=== PATIENT | male | born 1950 ===

== ENCOUNTER 2018-03-12 18:21 | Emergency (ER) | payer BC ==
[2018-03-12 18:44] VITALS: BP 172/115
--- NOTE | 2018-03-12 19:33 | UC ---
Complaint Male HPI - HPI Summary HPI Summary: ONSET OF SHARP RIGHT GROIN PAIN YESTERDAY MORNING AFTER BREAKFAST. PAIN RADIATES DOWN INTO RIGHT GROIN. PATIENT ALSO COMPLAINS OF LOW BACK PAIN AND NAUSEA. THREW UP ONE TIME THIS AFTERNOON. FEELS CONSTIPATED. NO BM IN SEVERAL DAYS BUT IS PASSING GAS. HAD SUBJECTIVE FEVER TODAY. - History of Current Complaint Chief Complaint: UCAbdominalPain Stated Complaint: LEG,GROIN PAIN,CONSTIPATION Time Seen by Provider: 03/12/18 19:01 Hx Obtained From: Patient Onset/Duration: Sudden Onset, Lasting Days, Still Present Timing: Constant Severity Initially: Moderate Severity Currently: Moderate Pain Intensity: 5 Pain Scale Used: 0-10 Numeric Location: Groin - RIGHT Character: Sharp Aggravating Factor(s): Other - MOVEMENT Alleviating Factor(s): Nothing Associated Signs And Symptoms: Positive: Back Pain, Fever, Constipation, Nausea , Vomiting(# Of Episodes =). Negative: Dysuria, Blood in Stool, Rectal Pain - Allergies/Home Medications Allergies/Adverse Reactions: Allergies Allergy/AdvReac Type Severity Reaction Status Date / Time COOLANT Allergy Rash Uncoded 03/12/18 18:44 Home Medications: Home Medications Vitamin B Complex CAP* [B Complex CAP*] 1 cap PO DAILY 03/12/18 [History Confirmed 03/12/18] PMH/Surg Hx/FS Hx/Imm Hx - Additional Past Medical History Additional PMH: RHEUMATOID ARTHRITIS - Surgical History Surgical History: Yes Surgery Procedure, Year, and Place: t&a - Family History Known Family History: Positive: Hypertension - Social History Alcohol Use: Weekly Alcohol Amount: 4-5 CANS/WEEK Substance Use Type: None Smoking Status (MU): Former Smoker Amount Used/How Often: 2 1/2 PPD X 20 YEARS Have You Smoked in the Last Year: No When Did the Patient Quit Smoking/Using Tobacco: 1982 Review of Systems Constitutional: Fever, Chills Respiratory: Negative Cardiovascular: Negative Gastrointestinal: Abdominal Pain, Vomiting, Nausea Genitourinary: Other - RIGHT GROIN PAIN Musculoskeletal: Other: - LOW BACK PAIN All Other Systems Reviewed And Are Negative: Yes Physical Exam Triage Information Reviewed: Yes Appearance: Well-Nourished, Pain Distress - MODERATE PAIN WITH MOVEMENT Vital Signs: Initial Vital Signs Temp 97.4 F 03/12/18 18:40 Pulse 55 03/12/18 18:40 Resp 16 03/12/18 18:40 BP 172/115 03/12/18 18:40 Pulse Ox 100 03/12/18 18:40 Laboratory Tests 03/12/18 19:39 POC Urine Color Yellow POC Urine Clarity Clear POC Urine pH 6.0 POC Ur Specif [place] >= 1.030 POC Urine Protein Negative POC Ur Glucose (UA) Negative POC Urine Ketones Negative POC Urine Blood Negative POC Urine Nitrite Negative POC Urine Bilirubin Negative POC Urine Urobilinogen 0.2 POC U Leukocyte Esteras Negative Vital Signs Reviewed: Yes Eyes: Positive: Conjunctiva Clear ENT: Positive: Hearing grossly normal Neck: Positive: Supple Respiratory Exam: Normal Cardiovascular Exam: Normal Abdomen Description: Positive: Soft, CVA Tenderness (R), Other: - TTP RLQ. NO REBOUND OR RIGIDITY. PAIN WITH PERCUSSION. NEG OBTURATOR. EQUIVOCAL PSOAS SIGN.. Negative: CVA Tenderness (L), Distended, Guarding Bowel Sounds: Positive: Present Male Genital Exam: Positive: Normal Genitalia - NO TESTICULAR TENDERNESS. NO MASS. Musculoskeletal: Positive: No Edema Neurological: Positive: Alert Psychological: Positive: Normal Response To Family, Age Appropriate Behavior Skin: Negative: rashes Complaint Male Course/Dx - Course Course Of Treatment: [place] [facility] [place] [facility] [place]. NEED TO CONSIDER APPY, PARTIAL SBO, STONE, HERNIA. PT OFFERED TRANSPORT TO THE ED BY AMBULANCE BUT DECLINES. ADVISED THAT BY NOT TRAVELING IN A MONITORED SETTING HE COULD BE RISKING WORSENING OF HIS CONDITION THAT COULD POSE A THREAT TO HIS LIFE, HEALTH AND MEDICAL SAFETY. HE VERBALIZES UNDERSTANDING AND CONTINUES TO DECLINE AMBULANCE TRANSFER. - Differential Dx/Diagnosis Provider Diagnoses: RLQ PAIN/PELVIC PAIN Discharge - Sign-Out/Discharge Documenting (check all that apply): Patient Departure All imaging exams completed and their final reports reviewed: No Studies - Discharge Plan Condition: Stable Disposition: [facility]ANS [facility] Patient Education Materials: Abdominal Pain (ED), Pelvic Pain (ED) Additional Instructions: URINE TEST UNREMARKABLE. GIVEN YOUR LEVEL OF DISCOMFORT EVALUATION IN THE ED IS WARRANTED. GO DIRECTLY [place] [facility] [place] FOR FURTHER EVALUATION. YOU HAVE DECLINED TRANSFER TO THE ED BY AMBULANCE. BE ADVISED THAT BY NOT TRAVELING IN A MONITORED SETTING YOU COULD BE RISKING WORSENING OF YOUR CONDITION THAT COULD POSE A THREAT TO YOUR LIFE, HEALTH AND MEDICAL SAFETY. - Billing Disposition and Condition Condition: STABLE Disposition: Trans Higher l of Care Fac
== END 2018-03-12 20:00 | disposition short-term general hospital (02) ==
LOC: UCEAST 18:21
DX: R10.31 Right lower quadrant pain (principal); R10.2 Pelvic and perineal pain; M54.5 Low back pain; Z87.891 Personal history of nicotine dependence
CPT/HCPCS: 81003; 99212; G0463

== ENCOUNTER 2018-03-12 20:20 | Emergency (ER) | payer BC, OTHER ==
[2018-03-12] MEDS ORDERED: NS 0.9% 1000 ML* 1,000 ML IV ONE (22:42)
[2018-03-12] MEDS ORDERED: Morphine VIAL* 10 MG/ML 1 ML VIAL IV ONE (22:46)
[2018-03-12] MEDS ORDERED: Ondansetron INJ* 2 MG/ML VIAL IV ONE (22:46)
[2018-03-12 23:00] LABS: ABS Basophils 0 10^3/ul (0-0.2); ABS Eosinophils 0 10^3/ul (0-0.6); ABS Lymphocytes 1.3 10^3/ul (1.0-4.8); ABS Monocytes 0.3 10^3/ul (0-0.8); ABS Neutrophils 7.9 10^3/ul (1.5-7.7); ABS Nucleated RBC 0 10^3/ul; Eosinophil % 0.2 % (0-6); Hematocrit 43 % (42-52); Hemoglobin 14.6 g/dl (14.0-18.0); Lymphocyte % 13.1 % (25-47); Mean Corpuscular HGB Conc 34 g/dl (31-36); Mean Corpuscular Hemoglobin 30 pg (27-31); Mean Corpuscular Volume 87 fL (80-94); Mean Platelet Volume 7.2 um3 (7.4-10.4); Nucleated Red Blood Cells % 0.2; Platelet Count 223 10^3/ul (150-450); Red Cell Distribution Width 14 % (10.5-15); White Blood Count 9.6 10^3/ul (3.5-10.8)
[2018-03-12] MEDS ORDERED: Morphine INJ* 4 MG/ML 1 ML SYRINGE (NEW SYRINGE VERSION) IV ONE (23:00)
[2018-03-12] MEDS ORDERED: Morphine INJ* 4 MG/ML 1 ML SYRINGE (NEW SYRINGE VERSION) ONE (23:10)
[2018-03-12 23:16] LABS: EGFR Non-African American 77.7 (>60)
--- NOTE | 2018-03-12 23:41 | RAD ---
EXAM: CT Abdomen and Pelvis Without Intravenous Contrast CLINICAL HISTORY: 67 years old, male; Pain; Abdominal pain; Generalized; Additional info: Flank pain TECHNIQUE: Axial computed tomography images of the abdomen and pelvis without intravenous contrast. All CT scans at this facility use at least one of these dose optimization techniques: automated exposure control; mA and/or kV adjustment per patient size (includes targeted exams where dose is matched to clinical indication); or iterative reconstruction. Coronal and sagittal reformatted images were created and reviewed. COMPARISON: No relevant prior studies available. FINDINGS: Lung bases: Unremarkable. No mass. No consolidation. ABDOMEN: Liver: Diffuse fatty infiltration of the liver. The size of the liver is normal. No focal hepatic lesion is seen on this unenhanced study. Gallbladder and bile ducts: No calcified gallstones. No gallbladder wall thickening. No distention of the common bile duct. Pancreas: No focal pancreatic lesion. No distention of the pancreatic duct. Spleen: The spleen is of normal size and appearance. Adrenals: The adrenal glands are normal. Kidneys and ureters: The kidneys are of normal size and appearance. No hydronephrosis or nephrolithiasis. In following the course of the ureters, no intraluminal calcification. Stomach and bowel: No bowel obstruction. No abnormal bowel wall thickening. PELVIS: Appendix: No findings to suggest acute appendicitis. Bladder: The bladder is distended with urine. No calcified stone within the bladder lumen. Reproductive: Unremarkable as visualized. ABDOMEN and PELVIS: Intraperitoneal space: No free abdominal fluid or air. Bones/joints: Spondylotic changes lumbar spine. No evidence of a fracture or pathologic subluxation. Soft tissues: Unremarkable. Vasculature: Calcification of the wall of the abdominal aorta. Ectasia of the descending abdominal aorta with a diameter of approximately 26 mm. Aneurysmal dilatation of the right common iliac artery. This has a diameter of 2.5 cm. Lymph nodes: Unremarkable. No enlarged lymph nodes. Other findings: No mesenteric inflammation. IMPRESSION: 1. No acute findings. 2. 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 Recommend yearly followup.
[2018-03-13 00:37] LABS: Urine Appearance Cloudy; Urine Blood Negative (Negative); Urine Color Yellow; Urine Ketones 1+ (Negative); Urine Protein Negative (Negative); Urine Specific Gravity 1.019 (1.010-1.030); Urine Urobilinogen Negative (Negative)
--- NOTE | 2018-03-13 00:49 | ED ---
Back Pain - HPI Summary HPI Summary: Patient sent from [facility] to the ED for evaluation of right flank pain, right groin pain, N/V, radiation down right leg. Pain started yesterday morning has been progressive and constant. Patient denies trauma, fever, cough , sore throat, CP, SOB, diarrhea, change in urine, change in BM. Patient no history of kidney stones, denies blood in urine. No anti-coag. Pain rated 10 out of 10. Medical history is RA. - History of Current Complaint Chief Complaint: EDFlankPain Stated Complaint: GROIN/BACK PAIN Time Seen by Provider: 03/12/18 22:37 Hx Obtained From: Patient Onset/Duration: Sudden Onset Onset/Duration: Started Hours Ago Timing: Constant Back Pain Location: Radiates To Severity Initially: Severe Severity Currently: Severe Pain Intensity: 9 Pain Scale Used: 0-10 Numeric Character: Sharp Aggravating Symptom(s): Nothing Alleviating Symptom(s): Nothing Associated Signs And Symptoms: Positive: Abdominal Pain, Flank Pain - Allergies/Home Medications Allergies/Adverse Reactions: Allergies Allergy/AdvReac Type Severity Reaction Status Date / Time COOLANT Allergy Rash Uncoded 03/12/18 20:31 PMH/Surg Hx/FS Hx/Imm Hx Endocrine/Hematology History: Denies: Hx Anticoagulant Therapy, Hx Diabetes, Hx Thyroid Disease Cardiovascular History: Reports: Other Cardiovascular Problems/Disorders - ABNORMAL EKG-PER PT.-STATES WORKUP NEGATIVE-STATES WAS BORN WITH Denies: Hx Hypertension Respiratory History: Denies: Hx Asthma, Hx Chronic Obstructive Pulmonary Disease (COPD) GI History: Reports: Hx Gastroesophageal Reflux Disease - HX OF IN THE PAST Denies: Hx Ulcer Musculoskeletal History: Reports: Hx Arthritis - HANDS, KNEES, ANKLES, Hx Bursitis - KNEES Sensory History: Reports: Hx Cataracts - BILATERAL, Hx Contacts or Glasses - GLASSES Denies: Hx Hearing Aid Opthamlomology History: Reports: Hx Cataracts - BILATERAL, Hx Contacts or Glasses - GLASSES - Surgical History Surgery Procedure, Year, and Place: t&a Hx Anesthesia Reactions: No Infectious Disease History: No Infectious Disease History: Denies: Hx Hepatitis, Hx Human Immunodeficiency Virus (HIV), Traveled Outside the [place] in Last 30 Days - Family History Known Family History: Positive: Hypertension - Social History Alcohol Use: Weekly Alcohol Amount: 4-5 CANS/WEEK Substance Use Type: Reports: None Smoking Status (MU): Former Smoker Amount Used/How Often: 2 1/2 PPD X 20 YEARS Have You Smoked in the Last Year: No Review of Systems Constitutional: Negative Eyes: Negative ENT: Negative Cardiovascular: Negative Respiratory: Negative Positive: Abdominal Pain, Vomiting, Nausea Positive: flank pain Musculoskeletal: Negative Skin: Negative Neurological: Negative Psychological: Normal All Other Systems Reviewed And Are Negative: Yes Physical Exam Triage Information Reviewed: Yes Vital Signs On Initial Exam: Initial Vitals Temp Pulse Resp BP Pulse Ox 97.4 F 60 16 178/92 98 03/12/18 20:20 03/12/18 20:20 03/12/18 20:20 03/12/18 20:20 03/12/18 20:20 Vital Signs Reviewed: Yes Appearance: Positive: Well-Appearing Skin: Positive: Warm Head/Face: Positive: Normal Head/Face Inspection Eyes: Positive: Normal Neck: Positive: Supple Respiratory/Lung Sounds: Positive: Clear to Auscultation Cardiovascular: Positive: Normal Abdomen Description: Negative: CVA Tenderness (R), CVA Tenderness (L), [place] Tenderness Musculoskeletal: Positive: Normal Neurological: Positive: Normal Psychiatric: Positive: Normal AVPU Assessment: Alert - [place] Coma Scale Best Eye Response: 4 - Spontaneous Best Motor Response: 6 - Obeys Commands Best Verbal Response: 5 - Oriented Coma Scale Total: 15 Diagnostics - Vital Signs Vital Signs Temp Pulse Resp BP Pulse Ox 03/13/18 00:01 64 97 03/12/18 23:59 67 177/91 97 03/12/18 23:57 181/93 03/12/18 23:37 20 03/12/18 22:20 97.7 F 65 16 182/98 98 03/12/18 20:20 97.4 F 60 16 178/92 98 - Laboratory Lab Results: Lab Results 03/12/18 03/12/18 03/12/18 Range/Units 22:53 22:53 22:53 WBC 9.6 (3.5-10.8) 10^3/ul RBC 4.90 (4.00-5.40) 10^6/ul Hgb 14.6 (14.0-18.0) g/dl Hct 43 (42-52) % MCV 87 (80-94) fL MCH 30 (27-31) pg MCHC 34 (31-36) g/dl RDW 14 (10.5-15) % Plt Count 223 (150-450) 10^3/ul MPV 7.2 L (7.4-10.4) um3 Neut % (Auto) 82.7 (38-83) % Lymph % (Auto) 13.1 L (25-47) % [place] % (Auto) 3.6 (0-7) % Eos % (Auto) 0.2 (0-6) % Baso % (Auto) 0.4 (0-2) % Absolute Neuts (auto) 7.9 H (1.5-7.7) 10^3/ul Absolute Lymphs (auto) 1.3 (1.0-4.8) 10^3/ul Absolute Monos (auto) 0.3 (0-0.8) 10^3/ul Absolute Eos (auto) 0 (0-0.6) 10^3/ul Absolute Basos (auto) 0 (0-0.2) 10^3/ul Absolute Nucleated RBC 0 10^3/ul Nucleated RBC % 0.2 Sodium 138 (135-145) mmol/L Potassium 3.9 (3.5-5.0) mmol/L Chloride 107 (101-111) mmol/L Carbon Dioxide 23 (22-32) mmol/L Anion Gap 8 (2-11) mmol/L BUN 19 (6-24) mg/dL Creatinine 0.96 (0.67-1.17) mg/dL Est GFR ( Amer) 94.0 (>60) Est GFR (Non-Af Amer) 77.7 (>60) BUN/Creatinine Ratio 19.8 (8-20) Glucose 126 H (70-100) mg/dL Lactic Acid 1.0 (0.5-2.0) mmol/L Calcium 8.9 (8.6-10.3) mg/dL Total Bilirubin 0.50 (0.2-1.0) mg/dL AST 18 (13-39) U/L ALT 22 (7-52) U/L Alkaline Phosphatase 48 (34-104) U/L C-Reactive Protein 1.57 (<8.01) mg/L Total Protein 7.0 (6.4-8.9) g/dL Albumin 4.3 (3.2-5.2) g/dL Globulin 2.7 (2-4) g/dL Albumin/Globulin Ratio 1.6 (1-3) Lipase 20 (11.0-82.0) U/L Urine Color Urine Appearance Urine pH (5-9) Ur Specific [place] (1.010-1.030) Urine Protein (Negative) Urine Ketones (Negative) Urine Blood (Negative) Urine Nitrate (Negative) Urine Bilirubin (Negative) Urine Urobilinogen (Negative) Ur Leukocyte Esterase (Negative) Urine Glucose (Negative) Urine Ascorbic Acid (Negative) 03/13/18 Range/Units 00:21 WBC (3.5-10.8) 10^3/ul RBC (4.00-5.40) 10^6/ul Hgb (14.0-18.0) g/dl Hct (42-52) % MCV (80-94) fL MCH (27-31) pg MCHC (31-36) g/dl RDW (10.5-15) % Plt Count (150-450) 10^3/ul MPV (7.4-10.4) um3 Neut % (Auto) (38-83) % Lymph % (Auto) (25-47) % [place] % (Auto) (0-7) % Eos % (Auto) (0-6) % Baso % (Auto) (0-2) % Absolute Neuts (auto) (1.5-7.7) 10^3/ul Absolute Lymphs (auto) (1.0-4.8) 10^3/ul Absolute Monos (auto) (0-0.8) 10^3/ul Absolute Eos (auto) (0-0.6) 10^3/ul Absolute Basos (auto) (0-0.2) 10^3/ul Absolute Nucleated RBC 10^3/ul Nucleated RBC % Sodium (135-145) mmol/L Potassium (3.5-5.0) mmol/L Chloride (101-111) mmol/L Carbon Dioxide (22-32) mmol/L Anion Gap (2-11) mmol/L BUN (6-24) mg/dL Creatinine (0.67-1.17) mg/dL Est GFR ( Amer) (>60) Est GFR (Non-Af Amer) (>60) BUN/Creatinine Ratio (8-20) Glucose (70-100) mg/dL Lactic Acid (0.5-2.0) mmol/L Calcium (8.6-10.3) mg/dL Total Bilirubin (0.2-1.0) mg/dL AST (13-39) U/L ALT (7-52) U/L Alkaline Phosphatase (34-104) U/L C-Reactive Protein (<8.01) mg/L Total Protein (6.4-8.9) g/dL Albumin (3.2-5.2) g/dL Globulin (2-4) g/dL Albumin/Globulin Ratio (1-3) Lipase (11.0-82.0) U/L Urine Color Yellow Urine Appearance Cloudy Urine pH 5.0 (5-9) Ur Specific [place] 1.019 (1.010-1.030) Urine Protein Negative (Negative) Urine Ketones 1+ A (Negative) Urine Blood Negative (Negative) Urine Nitrate Negative (Negative) Urine Bilirubin Negative (Negative) Urine Urobilinogen Negative (Negative) Ur Leukocyte Esterase Negative (Negative) Urine Glucose Negative (Negative) Urine Ascorbic Acid * A (Negative) Result Diagrams: 03/12/18 22:53 03/12/18 22:53 Lab Statement: Any lab studies that have been ordered have been reviewed, and results considered in the medical decision making process. - CT abdomen pelvis without CT Interpretation: No Acute Changes CT Interpretation Completed By: Radiologist Back Pain Course/Dx - Course Course Of Treatment: Patient sent from [facility] to the ED for evaluation of right flank pain, right groin pain, N/V, radiation down right leg. Pain started yesterday morning has been progressive and constant. Patient denies trauma, fever, cough, sore throat, CP, SOB, diarrhea, change in urine, change in BM. Patient no history of kidney stones, denies blood in urine. No anti- coag. Pain rated 10 out of 10. Medical history is RA. Vital signs within normal limits. Pain controlled. Labs unremarkable. CT abdomen and pelvis without contrast negative for renal calculus. Patient states urine flow alternating between good flow and less flow. Follow-up with urology if symptoms do not improve. - Diagnoses Provider Diagnoses: Right flank pain Discharge - Sign-Out/Discharge Documenting (check all that apply): Patient Departure - Discharge Plan Condition: Stable Disposition: HOME Prescriptions: HYDROcodone/ACETAMIN 5-325 MG* [[place] 5-325 TAB*] 1 tab PO BID 2 Days #4 tab MDD 2 tabs Patient Education Materials: Flank Pain (ED) Referrals: No Primary Care Phys,NOPCP [Primary Care Provider] - Perfecto Subramanian MD [Medical Doctor] - Additional Instructions: If symptoms persist follow-up with urologist Dr. Subramanian. Return to the ED for any new or worsening symptoms - Billing Disposition and Condition Condition: STABLE Disposition: Home
[2018-03-13] MEDS ORDERED: HYDROcodone/ACETAMIN 5-325 MG* 1 TAB PO ONE (01:06)
[2018-03-13 01:20] VITALS: BP 152/99
== END 2018-03-13 01:18 | disposition home or self-care (01) ==
LOC: ED 20:20
DX: R10.9 Unspecified abdominal pain (principal); R11.2 Nausea with vomiting, unspecified; M06.9 Rheumatoid arthritis, unspecified; Z87.891 Personal history of nicotine dependence
CPT/HCPCS: 36415; 74176; 80053; 81003; 83605; 83690; 85025; 86140; 96361; 96374; 96375; 99283; J2270; J2405